=== PATIENT | female | born 1945 | race Caucasian/White ===

== ENCOUNTER 2017-12-09 05:23 | Emergency (ER) | payer MEDICARE, OTHER ==
[~2017-12-09] VITALS: Ht 152.4 cm; Wt 52.0 kg
[2017-12-09] MEDS ORDERED: KETOROLAC 30MG/ML VIAL IV STA (06:37)
[2017-12-09] MEDS ORDERED: DEXAMETHASONE 10 MG/ML VIAL IV ONE (06:45)
[2017-12-09] MEDS ORDERED: TRAMADOL 50MG TABLET PO ONE (06:45)
[2017-12-09 09:42] VITALS: BP 156/83
== END 2017-12-09 09:44 | disposition home or self-care (01) ==
LOC: ER 05:23
DX: M54.9 Dorsalgia, unspecified (principal); E11.9 Type 2 diabetes mellitus without complications; I10 Essential (primary) hypertension; M51.36 Other intervertebral disc degeneration, lumbar region
CPT/HCPCS: 72100; 96374; 96375; 99284; J1100; J1885